=== PATIENT | female | born 1975 | race Caucasian/White ===

== ENCOUNTER 2016-11-23 08:09 | Inpatient (IN) | payer OTHER ==
[2016-11-23] MEDS ORDERED: ONDANSETRON 4 MG/2 ML VIAL ONE (08:34)
--- NOTE | 2016-11-23 08:42 | EDPHY ---
H & P Time Seen by Provider: 11/23/16 08:34 HPI/ROS: CHIEF COMPLAINT: Left shoulder pain HISTORY OF PRESENT ILLNESS: 41-year-old woman takes Ambien for sleep and did so last night. She says she usually wakes up to use the bathroom at night but can' t remember if she did. She woke up at 6:30 a.m. this morning with blood on her pillow and a headache and left shoulder pain. Left shoulder is painful and swollen and does not radiate but it is worse with any movement. Symptoms moderate to severe. Not associated with weakness or numbness in the left hand. REVIEW OF SYSTEMS: Eye: no change in vision ENT: no sore throat Cardiac: no chest pain or syncope Pulmonary: no cough or SOB Abdomen: no vomiting, diarrhea, abdominal pain Musculoskeletal: no back pain or neck pain Skin: Blood on the pillow she thinks she might have a scalp abrasion or laceration Neuro: Right-sided headache Constitutional: no fever : no urinary symptoms A comprehensive 10 point review of systems is otherwise negative aside from elements mentioned in the history of present illness. PAST MEDICAL HISTORY: Includes skull fracture, bowel obstruction, eating disorder and hyponatremia. Social history: Lives independently by herself General Appearance: Alert and conversant, cooperative. Eyes: No scleral icterus. ENT, Mouth: Normal mucous membranes. Normal tympanic membranes without hemotympanum. Respiratory: Normal respiratory effort, breath sounds equal, lungs are clear to auscultation. Cardiovascular: Regular rate and rhythm. Gastrointestinal: Abdomen is soft and non tender. Neurological: Alert and oriented x3. Normally conversant. Face symmetric, normal movement and sensation in all extremities. Skin: Less than 1 cm scalp abrasion without active bleeding on the occiput. Musculoskeletal: Left shoulder swelling and tenderness. Skin is intact. Left elbow forearm and wrist and hand are nontender with good range of motion. No clavicular tenderness. Psychiatric: Very anxious Emergency Department course/MDM: Plan for noncontrast head and cervical spine CT and left shoulder x-ray. 940: Sling to left shoulder, patient received 2 mg IV morphine for pain, neurosurgical retail consultant in the room with the patient. Labs pending at this time. 1100: Hematocrit noted is low at 30 but similar to previous values. Smoking Status: Never smoked Constitutional: Initial Vital Signs Temperature (C) 36.4 C 11/23/16 08:16 Heart Rate 67 11/23/16 08:16 Respiratory Rate 20 11/23/16 08:16 Blood Pressure 108/88 H 11/23/16 08:16 O2 Sat (%) 100 11/23/16 08:16 O2 Delivery Mode Room Air Allergies/Adverse Reactions: amoxicillin [Amoxicillin] Allergy (Intermediate, Verified 05/15/16 13:02) Abdominal Cramping gluten Allergy (Verified 05/15/16 13:02) Abdominal Cramping Milk Containing Products [dairy] Allergy (Verified 05/15/16 13:02) Abdominal Cramping Home Medications: Medication Instructions Recorded Herbals/Supplements -Info Only 1 ea PO DAILY 11/23/16 Zolpidem Tartrate [Ambien 10 mg] 10 mg PO HS 11/23/16 Medical Decision Making - Diagnostics Imaging: Left shoulder x-ray personally interpreted by myself shows humeral head surgical neck fracture. Noncontrast head CT personally interpreted at 9:16 a.m. shows right-sided subdural hematoma acute. Reviewed with Dr. Kwasi Caro at 9:45 a.m.. Cervical spine negative. Differential Diagnosis: Differential diagnosis considered for head injury including but not limited to concussion, skull fracture, intraparenchymal contusion, subarachnoid, subdural and epidural hematoma. Consult/Admit Bed Type: [place] [id number] in ED at 935, [place] 921a, [facility] 935 Critical Care Time: Critical care time spent by me, Dr. Peña, exclusively with the care of this patient was 30 minutes, exclusive of PA or LOG SORTING SUPERVISOR time and exclusive of separate procedures. The organ system at risk was neurologic and I ordered multiple imaging studies, discussion with consultants including Trauma surgery and Neurosurgery, to stabilize the patient and prevent worsening of the patient's condition. - Data Points Medications Given: Discontinued Medications Sodium Chloride (Ns) 500 mls @ 0 mls/hr IV ONCE ONE PRN Reason: Wide Open Stop: 11/23/16 08:50 Last Admin: 11/23/16 09:22 Dose: 500 mls Morphine Sulfate (Morphine) 1 mg IVP ONCE ONE Stop: 11/23/16 08:46 Last Admin: 11/23/16 08:46 Dose: 1 mg Morphine Sulfate (Morphine) 1 mg IVP ONCE ONE Stop: 11/23/16 09:25 Last Admin: 11/23/16 09:26 Dose: 1 mg Ondansetron HCl (Zofran) 4 mg IVP EDNOW ONE Stop: 11/23/16 08:46 Last Admin: 11/23/16 08:46 Dose: 4 mg Departure - Departure Disposition: [facility] Acute Clinical Impression: Subdural hematoma, acute Left humeral fracture Qualifiers: Encounter type: initial encounter Humerus Location: surgical neck Fracture type : closed Fracture morphology: unspecified fracture morphology Fracture alignment : displaced Qualified Code(s): S42.212A - Unspecified displaced fracture of surgical neck of left humerus, initial encounter for closed fracture Condition: Serious
[2016-11-23] MEDS ORDERED: ONDANSETRON 4 MG/2 ML VIAL IVP ONE (08:45)
[2016-11-23] MEDS ORDERED: NS 500 ML IV ONE (08:49)
--- NOTE | 2016-11-23 09:59 | SOAPPROG ---
SOAP Progress Note Assessment/Plan: Assessment: Right occipital SDH, currently neurologically asymptomatic Plan: - trauma will admit to ICU - Q1 hour neuro checks - repeat CT head in 4-6 hours - hopefully can avoid operative intervention given her poor nutritional status - ok with light narcotics for pain control 11/23/16 09:57 Subjective: c/o headache and left shoulder pain Objective: Vital Signs Temp Pulse Resp BP Pulse Ox 36.4 C 67 20 108/88 H 100 11/23/16 08:16 11/23/16 08:16 11/23/16 08:16 11/23/16 08:16 11/23/16 08:16 AAOx3, speech clear and fluent, VF intact strength full, no drift sensation intact ICD10 Worksheet Patient Problems: Problems Problem Status Onset Left humeral fracture Acute Subdural hematoma, acute Acute Dehydration Acute Elevated lipase Acute Skull fracture Acute
[2016-11-23 10:19] LABS: % IMMATURE GRANULYOCYTES 0.4 % (0.0-1.1); ABSOLUTE IMMATURE GRANULOCYTES 0.02 10^3/uL (0.00-0.10); ADD DIFF? NO; ADD MORPH? NO; ADD SCAN? NO; ATYPICAL LYMPHOCYTE FLAG 0 (0-99); FRAGMENT RBC FLAG 0 (0-99); HEMATOCRIT 30.2 % (38.0-47.0); HEMOGLOBIN 10.3 g/dL (12.6-16.3); LEFT SHIFT FLG 0 (0-99); LIPEMIA HEMOLYSIS FLAG 90 (0-99); MEAN CELL HEMOGLOBIN 32.4 pg (27.9-34.1); MEAN CELL HEMOGLOBIN CONCENTR. 34.1 g/dL (32.4-36.7); MEAN PLATELET VOLUME 9.2 fL (8.7-11.7); PLATELET CLUMPS FLAG 0 (0-99); PLATELET COUNT 199 10^3/uL (150-400); RED BLOOD CELL COUNT 3.18 10^6/uL (4.18-5.33); RED CELL DISTRIBUTION WIDTH 13.4 % (11.5-15.2)
[2016-11-23 10:39] LABS: INR 1.14 (0.83-1.16); PROTIME(PATIENT) 14.5 SEC (12.0-15.0)
[2016-11-23 10:40] LABS: APTT 24.5 SEC (23.0-38.0)
--- NOTE | 2016-11-23 10:46 | GCON ---
[f rep st] CONSULTATION NEUROSURGERY CONSULTATION: The patient was seen and evaluated at approximately 9:30 a.m. in the [facility] Emergency Department. DATE OF CONSULTATION: 11/23/2016 CHIEF COMPLAINT: Headache and left shoulder pain. HISTORY OF PRESENT ILLNESS: This patient is a 41-year-old woman with a history of severe eating disorder, who takes Ambien for sleep. She apparently, at some point last night, tripped over the carpet and fell, hitting her shoulder and head. She does not remember the event and does not remember if she had a loss of consciousness, but based on the fact that she did not remember, she thinks that she probably did. She woke up at some point in the night to go to the bathroom and then slept the remainder of the night on the floor. She then woke up at 6:30 this morning with some blood on her pillow, a headache, and severe left shoulder pain. She then presented to the emergency department where x- rays of the shoulder showed a fracture of the proximal humerus, and a CT of the head shows a right parietooccipital subdural/epidural hematoma. She otherwise is neurologically intact. The subdural hematoma in the occipital region measures approximately 1 cm in its greatest thickness, and is quite near the transverse sinus. Does have a somewhat lenticular shape, which could indeed represent an epidural component, but this is not entirely clear. There is some effacement of the underlying brain but no significant shift. The center portion of the subdural extension in the parietal region also causing some effacement of the brain but no major shift. Other than the headache and shoulder pain, she has no other major complaints at this time. REVIEW OF SYSTEMS: A 10-point review of systems is negative other than as described in HPI. PAST MEDICAL HISTORY: 1. Relatively recent skull fracture for which she was seen by my partner, Dr. Rivera, after another fall, tripping on a cord. 2. Bowel obstruction. 3. Severe eating disorder with multiple electrolyte and metabolic abnormalities. PAST SURGICAL HISTORY: Bowel obstruction surgery. SOCIAL HISTORY: Patient lives independently. She denies any alcohol, tobacco, or other drug abuse. FAMILY HISTORY: Negative for any neurosurgical problems or other significant medical disease. ALLERGIES: 1. Amoxicillin. 2. Gluten. 3. Dairy products. MEDICATIONS: 1. Ambien. 2. Zofran. PHYSICAL EXAMINATION: She is currently afebrile with a temperature of 36.4, heart rate 67, respiratory rate 20, blood pressure is 108/88, sat's are 100% on room air. She is awake, alert, and oriented x3. Speech is clear and fluent. Pupils are equal, round, and react to light. Extraocular movements are intact. Face is symmetric. Tongue is midline. Palate is symmetric. Visual carvajal are full to confrontation testing. She does not appear to have any deficits, although she says she sees some flashing lights occasionally, mostly in the right visual field. She has full strength and sensation of bilateral upper extremities, although her left arm is limited by her shoulder fracture in terms of its movement. In the lower extremities, she has 5/5 strength as well. She is very emaciated with virtually no muscle mass anywhere in her body. Her sensation is intact. Her deep tendon reflexes are normal. IMAGING REVIEW: See HPI. RESULTS REVIEW: She does not have any labs for review at this time. ASSESSMENT/PLAN: The patient is a 41-year-old woman with a very severe eating disorder and severe malnutrition. She presents today after a fall last night while she was taking Ambien at home, where she suffered a left proximal humerus fracture and a right-sided acute subdural hematoma. This is in the occipital region near the transverse sinus. There is some compression and effacement of the underlying brain, but she currently does not have any neurologic symptoms. She does have some headaches, but otherwise her vision is completely intact. I did discuss with her both the options of conservative observation with a repeat scan in about 4-6 hours versus operative evacuation of the subdural/epidural hematoma. At this point, given that she is asymptomatic, I favor conservative observation largely given the fact that this subdural is very near the transverse sinus and could result in a lot of bleeding, as well as due to her severe malnutrition, if we can get her through this without operative intervention. I would have a lot of concerns about the wound healing. She in understanding of all these issues. She is going to be admitted to the ICU for frequent neuro checks q.1 hour, and we will follow up the repeat scan in 4-6 hours. Please call us immediately if she should have any changes in her neurologic exam, specifically increasing lethargy, weakness, or visual troubles. We will follow along. Please do not hesitate to call with any questions or concerns. /[id number]/MODL MTDD
[2016-11-23] MEDS ORDERED: NALOXONE HCL 0.4 MG/ML INJ IVP PRN (10:48)
[2016-11-23 10:51] LABS: ANION GAP 10 mEq/L (8-16); CALCIUM 8.2 mg/dL (8.5-10.4); CARBON DIOXIDE 22 mEq/l (22-31); CHLORIDE 105 mEq/L (97-110); CREATININE 0.6 mg/dL (0.6-1.0); GLOMERULAR FILTRATION RATE > 60; POTASSIUM 3.1 mEq/L (3.5-5.2); SODIUM 137 mEq/L (134-144)
[2016-11-23] MEDS ORDERED: NS W/ 20 KCl/L 1,000 ML IV SCH (11:00)
[2016-11-23] MEDS ORDERED: LR 1,000 ML IV SCH (11:00)
[2016-11-23 11:06] LABS: GLUCOSE 33 mg/dL (70-100)
[2016-11-23] MEDS: FAMOTIDINE 20 MG/NACL 50 ML IV SCH ×2 (11:27→21:42)
[2016-11-23] MEDS ORDERED: POTASSIUM Cl (KCl) 20 MEQ in D5W NS 1,000 ML IV SCH (11:30)
[2016-11-23] MEDS ORDERED: D50W 25 GM/50 ML SYR IVP ONE (11:30)
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
[2016-11-23 14:41] LABS: ALANINE AMINOTRANSFERASE 49 IU/L (9-52); ALBUMIN 3.9 g/dL (3.5-5.0); ALKALINE PHOSPHATASE 49 IU/L (38-126); ASPARTATE AMINOTRANSFERASE 74 IU/L (14-46); BILIRUBIN,TOTAL 0.8 mg/dL (0.1-1.4); BILIRUBIN-CONJUGATED 0.3 mg/dL (0.0-0.5); BILIRUBIN-UNCONJUGATED 0.5 mg/dL (0.0-1.1); GLUCOSE 135 mg/dL (70-100); TOTAL PROTEIN 5.8 g/dL (6.3-8.2)
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
--- NOTE | 2016-11-23 15:23 | TRAUMAPN ---
Assessment/Plan: SDH R occiptal slightly increased 12 to 18mm, temporal SDH stable Await NS input for plan of care Objective: Vital Signs Temp Pulse Resp BP Pulse Ox 36.6 C 57 L 14 107/62 98 11/23/16 10:30 11/23/16 12:00 11/23/16 12:00 11/23/16 12:00 11/23/16 12:00 Laboratory Results 11/23/16 09:55 11/23/16 14:00 11/22/16 11/23/16 11/24/16 05:59 05:59 05:59 Intake Total 500 Balance 500 PT 14.5 SEC (12.0-15.0) 11/23/16 09:55 INR 1.14 (0.83-1.16) 11/23/16 09:55
[2016-11-23] MEDS: ONDANSETRON 4 MG/2 ML VIAL IVP PRN (19:02)
[2016-11-23] MEDS ORDERED: HYDROCODONE/APAP 5/325 TAB PO PRN (20:14)
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
[2016-11-23] MEDS: MAGNESIUM HYDROXIDE 30 ML UDCUP PO PRN (22:27)
[2016-11-24] MEDS ORDERED: PROTOCOL K PHOSPHATE 1 DOSE IV PRN (07:59)
[2016-11-24] MEDS ORDERED: PROTOCOL MAGNESIUM 1 DOSE IV PRN (07:59)
[2016-11-24] MEDS ORDERED: PROTOCOL POTASSIUM 1 DOSE MISC PRN (07:59)
[2016-11-24] MEDS ORDERED: PROTOCOL CALCIUM 1 DOSE IV PRN (07:59)
[2016-11-24] MEDS: ONDANSETRON 4 MG/2 ML VIAL IVP PRN (08:03)
--- NOTE | 2016-11-24 09:02 | NEUSURGPN ---
Assessment/Plan: 41y/o female s/p fall with acute right sided SDH from GLF -Okay for Q4 hour neuro checks -Repeat HCT yesterday stable. No further HCT needed unless decline in neuro exam -PT/OT evals -Optimize pain management -Will continue to follow -Notify NS with any change in neuro/motor exam Subjective: Headache Objective: NAD A&Ox3 CN II-XII grossly intact. EOMI. PERRLA MAEx4 5/5 and equal in BUE and BLE. - Physician Discussed Patient with : Loi Neurosurgery Physical Exam - Vitals, I&O, Labs I and O 11/23/16 11/24/16 11/25/16 05:59 05:59 05:59 Intake Total 2549 Balance 2549 Weight 28.8 kg Intake: Oral (ml) 1150 IV Infused (ml) 1399 POTASSIUM Cl (KCl) 20 meq 899 In D5w Ns 1,000 ml @ 50 mls/hr IV AD IRA Rx#: [id number] Other: Number of Voids Toilet 1 Vital Signs Temp Pulse Resp BP Pulse Ox 36.2 C 55 L 17 112/73 99 11/24/16 08:00 11/24/16 08:00 11/24/16 08:00 11/24/16 08:00 11/24/16 08:00 Laboratory Results 11/23/16 09:55 11/23/16 14:00 ICD10 Worksheet Patient Problems: Problems Problem Status Onset Left humeral fracture Acute Subdural hematoma, acute Acute Dehydration Acute Elevated lipase Acute Skull fracture Acute
[2016-11-24 09:03] LABS: IONIZED CALCIUM 0.76 MMOL/L (1.12-1.30)
[2016-11-24] MEDS ORDERED: CALCIUM GLUCONATE 2 GM in NS 50 ML IV ONE (09:16)
--- NOTE | 2016-11-24 10:03 | SOAPPROG ---
PETER Progress Note Assessment/Plan: Assessment/Plan: s/p fall with SDH and left humerus fracture - Currently being treated non-operatively - Continue pain management - Continue ice the the left shoulder as needed - PT/OT evaluations - Remain in sling and splint - Remain NWB LUE - New x-rays will be taken at outpatient follow-up 11/24/16 09:58 Subjective: Pt states she is feeling a little better, and her pain is more controlled. Pt denies fever, chills, SOB, chest pain, abdominal pain, N/V/D, calf pain, numbness and tingling. Objective: Vital Signs Temp Pulse Resp BP Pulse Ox 36.2 C 55 L 17 112/73 99 11/24/16 08:00 11/24/16 08:00 11/24/16 08:00 11/24/16 08:00 11/24/16 08:00 Laboratory Results 11/23/16 09:55 11/24/16 08:58 11/23/16 11/24/16 11/25/16 05:59 05:59 05:59 Intake Total 2549 Balance 2549 PT 14.5 SEC (12.0-15.0) 11/23/16 09:55 INR 1.14 (0.83-1.16) 11/23/16 09:55 Physical Exam - Physical Exam General Appearance: alert, no apparent distress Cardiac/Chest: normal peripheral pulses Skin: warm/dry, other (erythema and edema L shoulder) Extremities: normal capillary refill, swelling (Left shoulder), other (Splint and sling intact LUE), No pedal edema, No calf tenderness, No Bakari's sign Neuro/Psych: no motor/sensory deficits, alert, normal mood/affect, oriented x 3 ICD10 Worksheet Patient Problems: Problems Problem Status Onset Left humeral fracture Acute Subdural hematoma, acute Acute Dehydration Acute Elevated lipase Acute Skull fracture Acute
[2016-11-24] MEDS: FAMOTIDINE 20 MG/NACL 50 ML IV SCH ×2 (10:28→20:43)
[2016-11-24 12:27] LABS: POTASSIUM 4.6 mEq/L (3.5-5.2)
[2016-11-24 12:28] LABS: ALANINE AMINOTRANSFERASE 51 IU/L (9-52); ALBUMIN 3.8 g/dL (3.5-5.0); ALKALINE PHOSPHATASE 49 IU/L (38-126); ANION GAP 5 mEq/L (8-16); ASPARTATE AMINOTRANSFERASE 59 IU/L (14-46); BILIRUBIN,TOTAL 1.3 mg/dL (0.1-1.4); CARBON DIOXIDE 25 mEq/l (22-31); CHLORIDE 101 mEq/L (97-110); CREATININE 0.6 mg/dL (0.6-1.0); GLOMERULAR FILTRATION RATE > 60; GLUCOSE 76 mg/dL (70-100); MAGNESIUM 2.8 mg/dL (1.6-2.3); SODIUM 131 mEq/L (134-144); TOTAL PROTEIN 5.6 g/dL (6.3-8.2)
--- NOTE | 2016-11-24 12:35 | SOAPPROG ---
SOAP Progress Note Assessment/Plan: Assessment: ALERT ORIENTED AND COMFORTABLE/ 41 FEMALE WITH ANOREXIA AND FALL SUSTAINING SMALL EPIDURAL AND LEFT HUMERUS FX CHEST CLEAR/ VS STABLE/ ABD SOFT, NONTENDER Plan:TRANSFER TO MED-SURG 11/24/16 12:33 Objective: Vital Signs Temp Pulse Resp BP Pulse Ox 36.3 C 42 L 16 104/70 97 11/24/16 11:52 11/24/16 11:52 11/24/16 11:52 11/24/16 11:52 11/24/16 11:52 Laboratory Results 11/23/16 09:55 11/24/16 11:55 11/23/16 11/24/16 11/25/16 05:59 05:59 05:59 Intake Total 2549 Balance 2549 PT 14.5 SEC (12.0-15.0) 11/23/16 09:55 INR 1.14 (0.83-1.16) 11/23/16 09:55 ICD10 Worksheet Patient Problems: Problems Problem Status Onset Left humeral fracture Acute Subdural hematoma, acute Acute Dehydration Acute Elevated lipase Acute Skull fracture Acute
[2016-11-24] MEDS ORDERED: CYCLOBENZAPRINE 10 MG TAB PO PRN (13:07)
[2016-11-24] MEDS: MAGNESIUM HYDROXIDE 30 ML UDCUP PO PRN ×2 (13:37→20:43)
--- NOTE | 2016-11-24 16:06 | WOCRNPDOC ---
WOCRN Advanced Assessment Note - Skin Integrity Problem, Advanced Assess Sacrum Pressure Injury Dressing Type: Allevyn Life Dressing Description: Clean/Dry, Intact Exudate Amount: None Exudate Characteristic(s): None Integumentary Issue Intervention: Visualized Under Dressing Karen Wound Tissue: Erythema, Non-blanching Karen Wound Swelling: None Wound Bed Color: Red Wound Bed Constitution: Smooth Tissue Wound Edges: Irregular Site Odor: None Site Measurement - Head-to-Toe Length X Width X Depth (cm): 1 x 0.5 x 0.02 Pressure Injury Stage: Stage 2 Pressure Injury Present on Admit: Yes (Per patient description, was present on admission ) Skin Integrity Problem Comment: Patient has cachectic appearance in general, without observable adipose tissue across sacrum, where a small site presents as an bruised, abrasion-like feature, missing epidermis at surface. Is appropriately protected by an Allevyn dressing. Patient is mobile, ambulatory, standing readily at bedside for exam (per her preference), and demonstrated self -turning when in bed. GREGORY Carr present for eval.
[2016-11-24] MEDS: oxyCODONE IR 5 MG TAB PO PRN ×2 (16:36→22:40)
[2016-11-24] MEDS: FAMOTIDINE 20 MG TAB PO SCH (22:40)
[2016-11-25 04:50] LABS: IONIZED CALCIUM 1.13 MMOL/L (1.12-1.30)
[2016-11-25 05:04] LABS: ANION GAP 2 mEq/L (8-16); CARBON DIOXIDE 25 mEq/l (22-31); CHLORIDE 104 mEq/L (97-110); CREATININE 0.6 mg/dL (0.6-1.0); GLOMERULAR FILTRATION RATE > 60; GLUCOSE 48 mg/dL (70-100); MAGNESIUM 2.7 mg/dL (1.6-2.3); POTASSIUM 4.5 mEq/L (3.5-5.2); SODIUM 131 mEq/L (134-144)
[2016-11-25 05:08] LABS: ADD DIFF? NO; ADD MORPH? NO; ADD SCAN? NO; ATYPICAL LYMPHOCYTE FLAG 40 (0-99); FRAGMENT RBC FLAG 0 (0-99); HEMATOCRIT 26.7 % (38.0-47.0); HEMOGLOBIN 9.1 g/dL (12.6-16.3); LEFT SHIFT FLG 0 (0-99); LIPEMIA HEMOLYSIS FLAG 90 (0-99); MEAN CELL HEMOGLOBIN 33.5 pg (27.9-34.1); MEAN CELL HEMOGLOBIN CONCENTR. 34.1 g/dL (32.4-36.7); MEAN CELL VOLUME 98.2 fL (81.5-99.8); MEAN PLATELET VOLUME 9.6 fL (8.7-11.7); PLATELET CLUMPS FLAG 0 (0-99); PLATELET COUNT 145 10^3/uL (150-400); RED BLOOD CELL COUNT 2.72 10^6/uL (4.18-5.33); RED CELL DISTRIBUTION WIDTH 13.5 % (11.5-15.2)
--- NOTE | 2016-11-25 07:47 | SOAPPROG ---
PETER Progress Note Assessment/Plan: Assessment: Splint ok, Position may be better maintained with abduction sling Plan: Ortho signing off for now F/U in 9 days in [place] office for new films 11/25/16 07:44 Subjective: Moderate pain Objective: Vital Signs Temp Pulse Resp BP Pulse Ox 36.4 C 45 L 16 100/77 96 11/25/16 04:00 11/25/16 04:00 11/25/16 04:00 11/25/16 04:00 11/25/16 04:00 Laboratory Results 11/25/16 04:42 11/25/16 04:42 11/24/16 11/25/16 11/26/16 05:59 05:59 05:59 Intake Total 2549 500 600 Output Total 700 Balance 2549 -200 600 PT 14.5 SEC (12.0-15.0) 11/23/16 09:55 INR 1.14 (0.83-1.16) 11/23/16 09:55 VSS, Mentation appropriate CSMT ok ICD10 Worksheet Patient Problems: Problems Problem Status Onset Left humeral fracture Acute Subdural hematoma, acute Acute Dehydration Acute Elevated lipase Acute Skull fracture Acute
[2016-11-25] MEDS ORDERED: LACTULOSE 20 GM/30 ML UDCUP PO PRN (09:12)
[2016-11-25] MEDS ORDERED: BISACODYL 10 MG SUPP PR PRN (09:12)
[2016-11-25] MEDS ORDERED: POLYETHYLENE GLYCOL 3350 17 GM PKT PO PRN (09:12)
[2016-11-25] MEDS ORDERED: MAGNESIUM HYDROXIDE 30 ML UDCUP PO PRN (09:12)
--- NOTE | 2016-11-25 09:37 | NEUSURGPN ---
Assessment/Plan: 41y/o female s/p fall with acute right sided SDH from GLF -Neuro stable and doing well overall with some slight headaches and dizziness upon standing -Okay for Q4 hour neuro checks -Repeat HCT Friday stable. No further HCT needed unless decline in neuro exam -PT/OT evals -Optimize pain management- Ok to try Tylenol or Ibuprofen for headaches -Patient ok from neurosurgery standpoint to go home today if cleared by primary team, therapies. -Follow up with Dr. Monsivais in 3-4 weeks -Notify NS with any change in neuro/motor exam Subjective: Patient has slight headache this am and issues with constipation. Has some dizziness upon standing that corrects itself. Has been up and walking around the halls. Denies weakness, vision changes, troubles with speech. Objective: NAD, VSS Cachectic A&O X 3 PERRL, EOMI CNII-XII grossly intact LUE in splint exam limited- able to move fingers shoulder CABALLEOR X4 - Physician Discussed Patient with : Loi Neurosurgery Physical Exam - Vitals, I&O, Labs I and O 11/24/16 11/25/16 11/26/16 05:59 05:59 05:59 Intake Total 2549 500 600 Output Total 700 Balance 2549 -200 600 Weight 28.8 kg Intake: Oral (ml) 1150 500 IV Intake (ml) 600 IV Infused (ml) 1399 POTASSIUM Cl (KCl) 20 meq 899 In D5w Ns 1,000 ml @ 50 mls/hr IV AD IRA Rx#: [id number] Output: Urine (ml) 700 Toilet 700 Other: Intake Quantity Yes Sufficient Number of Voids Toilet 1 1 Vital Signs Temp Pulse Resp BP Pulse Ox 36.3 C 48 L 18 122/88 H 99 11/25/16 08:00 11/25/16 08:00 11/25/16 08:00 11/25/16 08:00 11/25/16 08:00 Laboratory Results 11/25/16 04:42 11/25/16 04:42 ICD10 Worksheet Patient Problems: Problems Problem Status Onset Left humeral fracture Acute Subdural hematoma, acute Acute Dehydration Acute Elevated lipase Acute Skull fracture Acute
[2016-11-25] MEDS: oxyCODONE IR 5 MG TAB PO PRN ×2 (10:26→16:07)
[2016-11-25] MEDS: FAMOTIDINE 20 MG TAB PO SCH (10:26)
--- NOTE | 2016-11-25 11:18 | SOAPPROG ---
SOAP Progress Note Assessment/Plan: Assessment: 41yo female s/p fall likely related to hypoglycemia in setting of anorexia resulting in non-operative humerus fracture, non-op subdural hematoma. Worried about pain control, use of splint. Ambulated small amount yesterday in sauer. PE awake, alert LUE in splint, FROM left hand/wrist CTA B/L Ht RRR Plan: cleared by neurosurg, F/U with Dr Monsivais in 4-6 weeks cleared by ortho, F/U Dr Marie in 8-9 days for xrays awaiting PT/OT evaluation --- will likely need homecare or possibly rehab given that pt lives alone. 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 [employer] 11/25/16 11:11 Objective: Vital Signs Temp Pulse Resp BP Pulse Ox 36.3 C 48 L 18 122/88 H 99 11/25/16 08:00 11/25/16 08:00 11/25/16 08:00 11/25/16 08:00 11/25/16 08:00 Laboratory Results 11/25/16 04:42 11/25/16 04:42 11/24/16 11/25/16 11/26/16 05:59 05:59 05:59 Intake Total 2549 500 600 Output Total 700 Balance 2549 -200 600 PT 14.5 SEC (12.0-15.0) 11/23/16 09:55 INR 1.14 (0.83-1.16) 11/23/16 09:55 ICD10 Worksheet Patient Problems: Problems Problem Status Onset Left humeral fracture Acute Subdural hematoma, acute Acute Dehydration Acute Elevated lipase Acute Skull fracture Acute
[2016-11-25 11:59] VITALS: BP 119/92; PULSE 50; RESP 16; TEMP 98.6; O2SAT 100
--- NOTE | 2016-11-25 12:50 | SOAPPROG ---
SOAP Progress Note Assessment/Plan: Assessment: ALERT ORIENTED AND COMFORTABLE/ 41 FEMALE WITH ANOREXIA AND FALL SUSTAINING SMALL EPIDURAL AND LEFT HUMERUS FX CHEST CLEAR/ VS STABLE/ ABD SOFT, NONTENDER Plan:TRANSFER TO MED-SURG 11/24/16 12:33 11/25/16 12:49 STABLE TODAY/ PT AND REHAB EVALUATION ONGOING Objective: Vital Signs Temp Pulse Resp BP Pulse Ox 37.0 C 50 L 16 119/92 H 100 11/25/16 11:59 11/25/16 11:59 11/25/16 11:59 11/25/16 11:59 11/25/16 11:59 Laboratory Results 11/25/16 04:42 11/25/16 04:42 11/24/16 11/25/16 11/26/16 05:59 05:59 05:59 Intake Total 2549 500 600 Output Total 700 Balance 2549 -200 600 PT 14.5 SEC (12.0-15.0) 11/23/16 09:55 INR 1.14 (0.83-1.16) 11/23/16 09:55 ICD10 Worksheet Patient Problems: Problems Problem Status Onset Left humeral fracture Acute Subdural hematoma, acute Acute Dehydration Acute Elevated lipase Acute Skull fracture Acute
--- NOTE | 2016-11-25 16:52 | PDIAF ---
- Diagnosis Diagnosis: left humerus fracture, subdural (both non-op) Code Status: Full Code - Medication Management Discharge Medications: Medications to Continue on Transfer Herbals/Supplements -Info Only 1 ea PO DAILY 11/23/16 [Last Taken Unknown] Zolpidem Tartrate [Ambien 10 mg] 10 mg PO HS 11/23/16 [Last Taken Unknown] Cyclobenzaprine [Flexeril 10 MG (*)] 10 mg PO Q8 PRN #30 tab 11/25/16 [Last Taken Unknown] oxyCODONE IR [Oxycodone Ir (*)] 5 mg PO Q4 PRN #60 tab 11/25/16 [Last Taken Unknown] Discharge Medications: Refer to the Discharge Home Medication list for PRN reason. - Orders Services needed: Physical Therapy, Occupational Therapy Diet Recommendation: no restrictions on diet Diet Texture: Regular Texture Diet - Follow Up Care Current Providers and Referrals: Drea Estrada MD [Primary Care Provider] - As per Instructions Carlos Marie MD [Medical Doctor] - (Pt is encouraged to follow up w/ Dr. Marie as an outpatient 10 days from her initial injury, or sooner with any additional concerns or complaints. She is encouraged to contact the office as soon as possible to schedule this appointment.)
[2016-11-25] MEDS ORDERED: SENNOSIDES/DOCUSATE SODIUM TAB PO SCH (21:00)
== END 2016-11-25 18:11 | disposition home health service (06) | DRG 562 ==
LOC: EDUNIT# → F2N 10:20 → F3N 11-24 11:37
PROVIDERS: ADMIT Surgery; ATTEND Surgery
DX: S42.292A Other displaced fracture of upper end of left humerus, initial encounter for closed fracture (principal); S06.5X0A Traumatic subdural hemorrhage without loss of consciousness, initial encounter; W01.10XA Fall on same level from slipping, tripping and stumbling with subsequent striking against unspecified object, initial encounter; Y92.013 Bedroom of single-family (private) house as the place of occurrence of the external cause; E16.2 Hypoglycemia, unspecified; L89.152 Pressure ulcer of sacral region, stage 2; K59.00 Constipation, unspecified
CPT/HCPCS: 82947-QW; 92523-GN; 96374; 97116-GP; 97161-GP; 97165-GO; 97530-GO; 97530-GP; 97535-GO; J0610; J2405